=== PATIENT | female | born 1940 | race Caucasian/White ===

== ENCOUNTER → 2017-02-14 | Outpatient (CLI) | payer MEDICARE, BC ==
[~2017-02-14] MED LIST: ALOE VESTA141 GM TOP; AMARYL1 MG PO; BYSTOLIC10 MG PO; CORDARONE200 MG PO; CULTURELLE1 CAP PO; LASIX40 MG PO; NORVASC5 MG PO; NYSTOP15 GM TOP; PRILOSEC20 MG PO; TYLENOL325 MG PO
== END | disposition short-term general hospital (02) ==
LOC: CLCARD 10:11
DX: I25.10 Atherosclerotic heart disease of native coronary artery without angina pectoris (principal); I38 Endocarditis, valve unspecified; I48.0 Paroxysmal atrial fibrillation; I11.0 Hypertensive heart disease with heart failure; I50.32 Chronic diastolic (congestive) heart failure; E66.9 Obesity, unspecified; E11.9 Type 2 diabetes mellitus without complications